=== PATIENT | female | born 1990 ===

== ENCOUNTER 2020-06-08 18:17 | Inpatient (IN) ==
[2020-06-08] MEDS ORDERED: VANCOMYCIN INJ 1,000 MG in SODIUM CHLORIDE 0.9% 250 ML IV ONE (22:36)
[2020-06-08 23:17] LABS: Basophils # 0.1 10*3/uL (0.0-0.2); Basophils % 0.5 % (0.0-0.8); Eosinophils # 0.3 10*3/uL (0.0-0.87); Eosinophils % 1.7 % (0.00-10.9); Hematocrit 32.6 VOL% (35.7-47.0); Immature Granulocytes % 0.5 %; Immature Granulocytes Absolute 0.08 #; Lymphocytes # 1.4 10*3/uL (1.4-4.0); Lymphocytes % 8.1 % (21.3-54.2); Mean Corpuscular HGB Conc 30.7 GM/DL (32-36); Mean Corpuscular Volume 83.6 FL (87-102); Mean Platelet Volume 9.1 FL (9.6-12.0); Monocytes % 6.3 % (1.7-12.7); Neutrophils % 82.9 % (38.7-73.9); Platelet Count 334 T/CUMM (130-400); Red Cell Distribution Width 16.6 % (9.3-17.3); White Blood Count 17.5 T/CUMM (4-12)
[2020-06-08] MEDS ORDERED: GLUCAGON 1 MG VIAL IM PRN (23:25)
[2020-06-08 23:37] LABS: Alanine Aminotransferase 13 U/L (13-56); Albumin 2.2 G/DL (3.4-5.0); Alkaline Phosphatase 239 U/L (45-117); Aspartate Amino Transferase 21 U/L (0-37); Bilirubin,Total < 0.39 MG/DL (0.2-1.0); Blood Urea Nitrogen 39 MG/DL (7-18); Calcium 7.4 MG/DL (8.5-10.1); Estimated Glom Filtration Rate 5 ML/MIN; Glucose 101 MG/DL (74-106); Osmolality,Calculated 270.7 MOS/KG (273-304); Total Protein 7.4 G/DL (6.4-8.3)
[2020-06-09] MEDS ORDERED: POTASSIUM CHLORIDE 20 MEQ TABLET PO ONE (00:28)
[2020-06-09] MEDS ORDERED: VANCOMYCIN INJ 750 MG in SODIUM CHLORIDE 0.9% 250 ML IV PRN (01:14)
[2020-06-09] MEDS ORDERED: VANCOMYCIN INJ 1,000 MG in SODIUM CHLORIDE 0.9% 250 ML IV ONE (01:30)
[2020-06-09 07:23] LABS: Basophils # 0.1 10*3/uL (0.0-0.2); Basophils % 0.5 % (0.0-0.8); Eosinophils # 0.3 10*3/uL (0.0-0.87); Eosinophils % 1.7 % (0.00-10.9); Hematocrit 32.2 VOL% (35.7-47.0); Immature Granulocytes % 0.6 %; Immature Granulocytes Absolute 0.11 #; Lymphocytes # 1.2 10*3/uL (1.4-4.0); Lymphocytes % 6.9 % (21.3-54.2); Mean Corpuscular HGB Conc 31.1 GM/DL (32-36); Mean Corpuscular Volume 83.2 FL (87-102); Monocytes % 6.2 % (1.7-12.7); Neutrophils % 84.1 % (38.7-73.9); Platelet Count 361 T/CUMM (130-400); Red Blood Count 3.87 MC/CUMM (3.8-5.5); Red Cell Distribution Width 16.7 % (9.3-17.3); White Blood Count 16.9 T/CUMM (4-12)
[2020-06-09 07:56] LABS: Albumin 2.2 G/DL (3.4-5.0); Bilirubin,Total 0.4 MG/DL (0.2-1.0); Calcium 7.3 MG/DL (8.5-10.1); Osmolality,Calculated 272.5 MOS/KG (273-304); Total Protein 7.4 G/DL (6.4-8.3)
[2020-06-09] MEDS ORDERED: ENOXAPARIN 30 MG/0.3 ML SYRINGE SUBCUT SCH (09:00)
[2020-06-09] MEDS: INSULIN REGULAR 100 UNIT/ML SUBCUT SCH ×4 (10:42→22:36)
[2020-06-09] MEDS ORDERED: VANCOMYCIN INJ 500 MG in SODIUM CHLORIDE 0.9% 100 ML IV PRN (15:34)
[2020-06-09] MEDS ORDERED: VANCOMYCIN INJ 500 MG in SODIUM CHLORIDE 0.9% 100 ML IV ONE (17:00)
[2020-06-09] MEDS: GABAPENTIN 100 MG CAPSULE PO SCH ×2 (18:06→22:35)
[2020-06-09] MEDS: oxyCODONE/ACETAMINOPHEN 5-325 MG TABLET PO PRN (22:35)
[2020-06-10 05:45] LABS: Basophils # 0.1 10*3/uL (0.0-0.2); Basophils % 0.6 % (0.0-0.8); Eosinophils # 0.2 10*3/uL (0.0-0.87); Eosinophils % 1.2 % (0.00-10.9); Hematocrit 31.5 VOL% (35.7-47.0); Hemoglobin 9.5 GM/DL (12.0-16.0); Immature Granulocytes % 0.7 %; Immature Granulocytes Absolute 0.12 #; Lymphocytes # 1.6 10*3/uL (1.4-4.0); Lymphocytes % 9.3 % (21.3-54.2); Mean Corpuscular HGB Conc 30.2 GM/DL (32-36); Mean Corpuscular Volume 84.2 FL (87-102); Mean Platelet Volume 8.9 FL (9.6-12.0); Monocytes % 8.7 % (1.7-12.7); Neutrophils % 79.5 % (38.7-73.9); Platelet Count 351 T/CUMM (130-400); Red Blood Count 3.74 MC/CUMM (3.8-5.5); Red Cell Distribution Width 16.4 % (9.3-17.3)
[2020-06-10 05:58] LABS: Calcium 7.7 MG/DL (8.5-10.1); Osmolality,Calculated 269.2 MOS/KG (273-304)
[2020-06-10] MEDS: LEVOTHYROXINE 25 MCG TABLET PO SCH (07:15)
[2020-06-10] MEDS: INSULIN REGULAR 100 UNIT/ML SUBCUT SCH ×4 (07:49→20:22)
[2020-06-10] MEDS: POTASSIUM CHLORIDE RIDER 10 MEQ in PREMIX 1 EACH IV PRN ×5 (08:03→15:57)
[2020-06-10] MEDS: HYDROmorphone 2 MG/1 ML VIAL IV PRN ×5 (08:03→13:25)
[2020-06-10] MEDS: GABAPENTIN 100 MG CAPSULE PO SCH ×3 (08:04→21:38)
[2020-06-10] MEDS: MULTIVITAMIN (CENTRUM) TABLET PO SCH (08:04)
[2020-06-10] MEDS ORDERED: LIDOCAINE 2% 5 ML VIAL ONE (11:31)
[2020-06-10] MEDS ORDERED: propofoL 200 MG/20 ML VIAL IV ONE (11:31)
[2020-06-10] MEDS ORDERED: SUCCINYLCHOLINE 200 MG/10 ML VIAL ONE (11:31)
[2020-06-10] MEDS ORDERED: fentaNYL 100 MCG/2 ML VIAL ONE (11:31)
[2020-06-10] MEDS ORDERED: ROCURONIUM 50 MG/5 ML VIAL IV ONE (11:31)
[2020-06-10] MEDS ORDERED: MIDAZOLAM 2 MG/2 ML VIAL ONE (11:32)
[2020-06-10] MEDS ORDERED: ONDANSETRON 4 MG/2 ML VIAL ONE (11:32)
[2020-06-10] MEDS ORDERED: BUPIVACAINE MPF 0.25% 30 ML VIAL ONE (11:38)
[2020-06-10] MEDS ORDERED: LOPERAMIDE 2 MG CAPSULE PO PRN (14:25)
[2020-06-10] MEDS ORDERED: LOPERAMIDE 2 MG CAPSULE PO ONE (14:30)
[2020-06-10] MEDS ORDERED: HEPARIN 5,000 UNIT/1 ML VIAL IV ONE (15:08)
[2020-06-10 16:53] LABS: INR 1.1; PT Patient Result 11.4 SECS (9.8-11.9)
[2020-06-10] MEDS: HEPARIN DRIP 25,000 UNITS/500 ML PREMIX IV SCH (16:56)
[2020-06-10] MEDS: WARFARIN 5 MG TABLET PO SCH (17:38)
[2020-06-10] MEDS: oxyCODONE/ACETAMINOPHEN 5-325 MG TABLET PO PRN ×2 (17:38→21:38)
[2020-06-11] MEDS: oxyCODONE/ACETAMINOPHEN 5-325 MG TABLET PO PRN ×4 (01:59→18:26)
[2020-06-11 06:19] LABS: Basophils # 0.1 10*3/uL (0.0-0.2); Basophils % 0.7 % (0.0-0.8); Eosinophils # 0.2 10*3/uL (0.0-0.87); Eosinophils % 1.5 % (0.00-10.9); Hematocrit 31.4 VOL% (35.7-47.0); Hemoglobin 9.5 GM/DL (12.0-16.0); Immature Granulocytes % 0.7 %; Immature Granulocytes Absolute 0.09 #; Lymphocytes # 1.3 10*3/uL (1.4-4.0); Lymphocytes % 10.6 % (21.3-54.2); Mean Corpuscular HGB Conc 30.3 GM/DL (32-36); Mean Corpuscular Volume 85.6 FL (87-102); Mean Platelet Volume 9.3 FL (9.6-12.0); Monocytes % 6.8 % (1.7-12.7); Neutrophils % 79.7 % (38.7-73.9); Platelet Count 342 T/CUMM (130-400); Red Blood Count 3.67 MC/CUMM (3.8-5.5); Red Cell Distribution Width 16.4 % (9.3-17.3); White Blood Count 12.4 T/CUMM (4-12)
[2020-06-11 06:39] LABS: Calcium 7.3 MG/DL (8.5-10.1); Osmolality,Calculated 266.7 MOS/KG (273-304)
[2020-06-11] MEDS: LEVOTHYROXINE 25 MCG TABLET PO SCH (06:40)
[2020-06-11] MEDS: VANCOMYCIN 50 MG/ML 60 ML/BOTTLE PO SCH ×3 (07:37→18:29)
[2020-06-11] MEDS: INSULIN REGULAR 100 UNIT/ML SUBCUT SCH ×4 (08:16→20:50)
[2020-06-11] MEDS: HYDROmorphone 2 MG/1 ML VIAL IV PRN ×3 (08:24→21:30)
[2020-06-11] MEDS: GABAPENTIN 100 MG CAPSULE PO SCH ×3 (08:29→21:25)
[2020-06-11] MEDS: MULTIVITAMIN (CENTRUM) TABLET PO SCH (08:29)
[2020-06-11] MEDS: SODIUM HYPOCHLORITE 0.25% IRRIG 473 ML BOTTLE TOP SCH (11:20)
[2020-06-11 16:40] LABS: Hematocrit 29.1 VOL% (35.7-47.0); Hemoglobin 8.9 GM/DL (12.0-16.0)
[2020-06-11] MEDS ORDERED: VANCOMYCIN INJ 500 MG in SODIUM CHLORIDE 0.9% 100 ML IV ONE (17:00)
[2020-06-11] MEDS: WARFARIN 5 MG TABLET PO SCH (17:17)
[2020-06-11] MEDS: HEPARIN DRIP 25,000 UNITS/500 ML PREMIX IV SCH (21:34)
[2020-06-12] MEDS: VANCOMYCIN 50 MG/ML 60 ML/BOTTLE PO SCH ×4 (00:18→17:34)
[2020-06-12] MEDS: HYDROmorphone 2 MG/1 ML VIAL IV PRN ×4 (03:16→17:39)
[2020-06-12] MEDS: LEVOTHYROXINE 25 MCG TABLET PO SCH (06:08)
[2020-06-12 06:22] LABS: Basophils # 0.1 10*3/uL (0.0-0.2); Basophils % 0.7 % (0.0-0.8); Eosinophils # 0.2 10*3/uL (0.0-0.87); Hematocrit 27.2 VOL% (35.7-47.0); Hemoglobin 8.2 GM/DL (12.0-16.0); Immature Granulocytes % 0.8 %; Immature Granulocytes Absolute 0.09 #; Lymphocytes # 1.4 10*3/uL (1.4-4.0); Lymphocytes % 12.7 % (21.3-54.2); Mean Corpuscular HGB Conc 30.1 GM/DL (32-36); Mean Corpuscular Volume 85.3 FL (87-102); Mean Platelet Volume 8.9 FL (9.6-12.0); Monocytes % 8.7 % (1.7-12.7); Neutrophils % 75.1 % (38.7-73.9); Platelet Count 340 T/CUMM (130-400); Red Blood Count 3.19 MC/CUMM (3.8-5.5); Red Cell Distribution Width 16.2 % (9.3-17.3); White Blood Count 11.2 T/CUMM (4-12)
[2020-06-12 06:29] LABS: PT Patient Result 11.1 SECS (9.8-11.9)
[2020-06-12 06:34] LABS: Calcium 7.8 MG/DL (8.5-10.1); Osmolality,Calculated 269.1 MOS/KG (273-304)
[2020-06-12] MEDS: INSULIN REGULAR 100 UNIT/ML SUBCUT SCH ×4 (07:56→20:58)
[2020-06-12] MEDS: oxyCODONE/ACETAMINOPHEN 5-325 MG TABLET PO PRN ×3 (09:34→20:58)
[2020-06-12] MEDS: SODIUM HYPOCHLORITE 0.25% IRRIG 473 ML BOTTLE TOP SCH (09:59)
[2020-06-12] MEDS: MULTIVITAMIN (CENTRUM) TABLET PO SCH (09:59)
[2020-06-12] MEDS: GABAPENTIN 100 MG CAPSULE PO SCH ×3 (10:00→20:58)
[2020-06-12] MEDS: WARFARIN 5 MG TABLET PO SCH (17:34)
[2020-06-13] MEDS: VANCOMYCIN 50 MG/ML 60 ML/BOTTLE PO SCH ×5 (00:24→23:41)
[2020-06-13] MEDS: HYDROmorphone 2 MG/1 ML VIAL IV PRN ×4 (00:28→23:35)
[2020-06-13] MEDS: oxyCODONE/ACETAMINOPHEN 5-325 MG TABLET PO PRN ×2 (02:39→19:49)
[2020-06-13 05:03] LABS: Basophils # 0.1 10*3/uL (0.0-0.2); Basophils % 0.7 % (0.0-0.8); Eosinophils # 0.2 10*3/uL (0.0-0.87); Eosinophils % 2.6 % (0.00-10.9); Hematocrit 28.3 VOL% (35.7-47.0); Hemoglobin 8.4 GM/DL (12.0-16.0); Immature Granulocytes % 0.8 %; Immature Granulocytes Absolute 0.07 #; Lymphocytes # 1.9 10*3/uL (1.4-4.0); Lymphocytes % 20.8 % (21.3-54.2); Mean Corpuscular HGB Conc 29.7 GM/DL (32-36); Mean Corpuscular Volume 85.2 FL (87-102); Mean Platelet Volume 8.7 FL (9.6-12.0); Monocytes % 7.6 % (1.7-12.7); Neutrophils % 67.5 % (38.7-73.9); Platelet Count 369 T/CUMM (130-400); Red Blood Count 3.32 MC/CUMM (3.8-5.5); Red Cell Distribution Width 16.2 % (9.3-17.3)
[2020-06-13] MEDS: LEVOTHYROXINE 25 MCG TABLET PO SCH ×2 (05:22→05:33)
[2020-06-13 05:40] LABS: INR 1.7
[2020-06-13] MEDS ORDERED: WARFARIN 4 MG TABLET PO SCH (12:00)
[2020-06-13] MEDS: MULTIVITAMIN (CENTRUM) TABLET PO SCH (13:54)
[2020-06-13] MEDS: GABAPENTIN 100 MG CAPSULE PO SCH ×3 (13:54→21:56)
[2020-06-13] MEDS: INSULIN REGULAR 100 UNIT/ML SUBCUT SCH ×3 (13:54→21:56)
[2020-06-13] MEDS ORDERED: VANCOMYCIN INJ 500 MG in SODIUM CHLORIDE 0.9% 100 ML IV ONE (17:00)
[2020-06-13] MEDS: HEPARIN DRIP 25,000 UNITS/500 ML PREMIX IV SCH (17:31)
[2020-06-13] MEDS: SODIUM HYPOCHLORITE 0.25% IRRIG 473 ML BOTTLE TOP SCH (17:38)
[2020-06-14] MEDS: HYDROmorphone 2 MG/1 ML VIAL IV PRN ×4 (04:05→23:55)
[2020-06-14] MEDS: LEVOTHYROXINE 25 MCG TABLET PO SCH (05:35)
[2020-06-14] MEDS: VANCOMYCIN 50 MG/ML 60 ML/BOTTLE PO SCH ×4 (05:35→23:56)
[2020-06-14 06:20] LABS: Basophils # 0.1 10*3/uL (0.0-0.2); Basophils % 0.8 % (0.0-0.8); Eosinophils # 0.2 10*3/uL (0.0-0.87); Eosinophils % 2.5 % (0.00-10.9); Hematocrit 26.2 VOL% (35.7-47.0); Hemoglobin 7.9 GM/DL (12.0-16.0); INR 2.8; Immature Granulocytes % 0.8 %; Immature Granulocytes Absolute 0.06 #; Lymphocytes # 1.9 10*3/uL (1.4-4.0); Lymphocytes % 23.2 % (21.3-54.2); Mean Corpuscular HGB Conc 30.2 GM/DL (32-36); Mean Corpuscular Volume 85.1 FL (87-102); Monocytes % 9.7 % (1.7-12.7); PT Patient Result 28.7 SECS (9.8-11.9); Platelet Count 350 T/CUMM (130-400); Red Blood Count 3.08 MC/CUMM (3.8-5.5); Red Cell Distribution Width 16.1 % (9.3-17.3)
[2020-06-14 06:36] LABS: Calcium 7.6 MG/DL (8.5-10.1); Osmolality,Calculated 269.1 MOS/KG (273-304)
[2020-06-14] MEDS: MULTIVITAMIN (CENTRUM) TABLET PO SCH (09:59)
[2020-06-14] MEDS: GABAPENTIN 100 MG CAPSULE PO SCH ×3 (09:59→20:37)
[2020-06-14] MEDS: SODIUM HYPOCHLORITE 0.25% IRRIG 473 ML BOTTLE TOP SCH ×2 (10:00→17:31)
[2020-06-14] MEDS: INSULIN REGULAR 100 UNIT/ML SUBCUT SCH ×2 (12:34→12:35)
[2020-06-14] MEDS: oxyCODONE/ACETAMINOPHEN 5-325 MG TABLET PO PRN (13:26)
[2020-06-14] MEDS: DEXTROSE 50% 25 GM/50 ML VIAL IV PRN (14:12)
[2020-06-15] MEDS: oxyCODONE/ACETAMINOPHEN 5-325 MG TABLET PO PRN ×3 (04:06→18:20)
[2020-06-15] MEDS: HYDROmorphone 2 MG/1 ML VIAL IV PRN ×4 (06:07→23:07)
[2020-06-15] MEDS: LEVOTHYROXINE 25 MCG TABLET PO SCH (06:08)
[2020-06-15] MEDS: VANCOMYCIN 50 MG/ML 60 ML/BOTTLE PO SCH ×3 (06:08→18:20)
[2020-06-15 06:12] LABS: INR 1.7
[2020-06-15] MEDS: MULTIVITAMIN (CENTRUM) TABLET PO SCH (09:26)
[2020-06-15] MEDS: GABAPENTIN 100 MG CAPSULE PO SCH ×3 (09:26→20:01)
[2020-06-15] MEDS: HEPARIN DRIP 25,000 UNITS/500 ML PREMIX IV SCH (14:53)
[2020-06-15] MEDS: SODIUM HYPOCHLORITE 0.25% IRRIG 473 ML BOTTLE TOP SCH (15:30)
[2020-06-16] MEDS: VANCOMYCIN 50 MG/ML 60 ML/BOTTLE PO SCH ×4 (00:57→18:33)
[2020-06-16] MEDS: oxyCODONE/ACETAMINOPHEN 5-325 MG TABLET PO PRN ×4 (01:11→20:38)
[2020-06-16] MEDS: HYDROmorphone 2 MG/1 ML VIAL IV PRN ×2 (03:51→08:58)
[2020-06-16 05:44] LABS: INR 1.2
[2020-06-16 05:51] LABS: Calcium 7.7 MG/DL (8.5-10.1); Osmolality,Calculated 267.8 MOS/KG (273-304)
[2020-06-16] MEDS: LEVOTHYROXINE 25 MCG TABLET PO SCH (05:51)
[2020-06-16] MEDS: MULTIVITAMIN (CENTRUM) TABLET PO SCH (08:58)
[2020-06-16] MEDS: GABAPENTIN 100 MG CAPSULE PO SCH ×3 (08:59→20:37)
[2020-06-16] MEDS ORDERED: HEPARIN 10,000 UNIT/10 ML VIAL IV SCH (12:00)
[2020-06-16] MEDS: MORPHINE 4 MG/1 ML VIAL IV PRN ×3 (14:02→23:22)
[2020-06-16] MEDS: HEPARIN DRIP 25,000 UNITS/500 ML PREMIX IV SCH (15:44)
[2020-06-16] MEDS ORDERED: VANCOMYCIN INJ 500 MG in SODIUM CHLORIDE 0.9% 100 ML IV ONE (17:00)
[2020-06-16] MEDS: SODIUM HYPOCHLORITE 0.25% IRRIG 473 ML BOTTLE TOP SCH (19:10)
[2020-06-16] MEDS: WARFARIN 4 MG TABLET PO SCH (19:27)
[2020-06-16] MEDS ORDERED: HEPARIN 5,000 UNIT/1 ML VIAL IV PRN (22:51)
[2020-06-17] MEDS: VANCOMYCIN 50 MG/ML 60 ML/BOTTLE PO SCH ×5 (00:26→23:40)
[2020-06-17] MEDS: MORPHINE 4 MG/1 ML VIAL IV PRN ×2 (05:52→09:26)
[2020-06-17] MEDS: LEVOTHYROXINE 25 MCG TABLET PO SCH (05:52)
[2020-06-17 06:11] LABS: Basophils % 0.5 % (0.0-0.8); Eosinophils # 0.2 10*3/uL (0.0-0.87); Eosinophils % 2.1 % (0.00-10.9); Hematocrit 25.6 VOL% (35.7-47.0); Hemoglobin 7.6 GM/DL (12.0-16.0); Immature Granulocytes % 0.6 %; Immature Granulocytes Absolute 0.05 #; Lymphocytes # 1.9 10*3/uL (1.4-4.0); Mean Corpuscular HGB Conc 29.7 GM/DL (32-36); Mean Corpuscular Volume 85.6 FL (87-102); Mean Platelet Volume 8.8 FL (9.6-12.0); Monocytes % 6.9 % (1.7-12.7); Neutrophils % 65.9 % (38.7-73.9); Platelet Count 311 T/CUMM (130-400); Red Blood Count 2.99 MC/CUMM (3.8-5.5); Red Cell Distribution Width 16.3 % (9.3-17.3); White Blood Count 7.7 T/CUMM (4-12)
[2020-06-17 06:19] LABS: INR 1.2; PT Patient Result 12.6 SECS (9.8-11.9)
[2020-06-17 06:44] LABS: Calcium 7.4 MG/DL (8.5-10.1); Osmolality,Calculated 271.5 MOS/KG (273-304)
[2020-06-17] MEDS: MULTIVITAMIN (CENTRUM) TABLET PO SCH (09:26)
[2020-06-17] MEDS: GABAPENTIN 100 MG CAPSULE PO SCH ×3 (09:26→20:25)
[2020-06-17] MEDS ORDERED: DEXTROSE 50% 25 GM/50 ML VIAL IV PRN (11:06)
[2020-06-17] MEDS ORDERED: GLUCAGON 1 MG VIAL IM PRN (11:06)
[2020-06-17] MEDS: oxyCODONE/ACETAMINOPHEN 5-325 MG TABLET PO PRN ×3 (11:12→20:26)
[2020-06-17] MEDS: INSULIN LISPRO 100 UNIT/ML SUBCUT SCH ×3 (12:16→20:26)
[2020-06-17] MEDS: HEPARIN DRIP 25,000 UNITS/500 ML PREMIX IV SCH (15:26)
[2020-06-17] MEDS: WARFARIN 4 MG TABLET PO SCH (17:24)
[2020-06-17] MEDS: SODIUM HYPOCHLORITE 0.25% IRRIG 473 ML BOTTLE TOP SCH (17:34)
[2020-06-18] MEDS: oxyCODONE/ACETAMINOPHEN 5-325 MG TABLET PO PRN ×4 (00:37→21:23)
[2020-06-18 05:33] LABS: Basophils # 0.1 10*3/uL (0.0-0.2); Basophils % 0.6 % (0.0-0.8); Eosinophils # 0.2 10*3/uL (0.0-0.87); Eosinophils % 2.3 % (0.00-10.9); Hematocrit 23.8 VOL% (35.7-47.0); Hemoglobin 7.2 GM/DL (12.0-16.0); Immature Granulocytes % 0.5 %; Immature Granulocytes Absolute 0.04 #; Lymphocytes # 1.8 10*3/uL (1.4-4.0); Mean Corpuscular HGB Conc 30.3 GM/DL (32-36); Mean Corpuscular Volume 85.9 FL (87-102); Mean Platelet Volume 9.3 FL (9.6-12.0); Monocytes % 7.9 % (1.7-12.7); Neutrophils % 65.7 % (38.7-73.9); Platelet Count 299 T/CUMM (130-400); Red Blood Count 2.77 MC/CUMM (3.8-5.5); Red Cell Distribution Width 16.8 % (9.3-17.3); White Blood Count 7.7 T/CUMM (4-12)
[2020-06-18] MEDS: LEVOTHYROXINE 25 MCG TABLET PO SCH (05:37)
[2020-06-18] MEDS: VANCOMYCIN 50 MG/ML 60 ML/BOTTLE PO SCH ×4 (05:38→23:55)
[2020-06-18 05:43] LABS: INR 1.5; PT Patient Result 15.4 SECS (9.8-11.9)
[2020-06-18 06:07] LABS: Calcium 7.4 MG/DL (8.5-10.1); Osmolality,Calculated 277.4 MOS/KG (273-304)
[2020-06-18] MEDS ORDERED: VANCOMYCIN INJ 500 MG in SODIUM CHLORIDE 0.9% 100 ML IV PRN (07:08)
[2020-06-18] MEDS: INSULIN LISPRO 100 UNIT/ML SUBCUT SCH ×4 (07:35→21:24)
[2020-06-18] MEDS: SODIUM HYPOCHLORITE 0.25% IRRIG 473 ML BOTTLE TOP SCH (08:53)
[2020-06-18] MEDS: GABAPENTIN 100 MG CAPSULE PO SCH ×3 (08:53→21:06)
[2020-06-18] MEDS: MULTIVITAMIN (CENTRUM) TABLET PO SCH (08:53)
[2020-06-18] MEDS: MORPHINE 4 MG/1 ML VIAL IV PRN ×2 (09:25→17:20)
[2020-06-18] MEDS ORDERED: SODIUM CHLORIDE 0.9% 1,000 ML IV PRN (13:59)
[2020-06-18 14:52] LABS: Basophils % 0.4 % (0.0-0.8); Eosinophils # 0.1 10*3/uL (0.0-0.87); Eosinophils % 1.9 % (0.00-10.9); Hematocrit 22.7 VOL% (35.7-47.0); Hemoglobin 7.1 GM/DL (12.0-16.0); Immature Granulocytes % 0.6 %; Immature Granulocytes Absolute 0.04 #; Lymphocytes # 1.5 10*3/uL (1.4-4.0); Lymphocytes % 21.9 % (21.3-54.2); Mean Corpuscular HGB Conc 31.3 GM/DL (32-36); Mean Corpuscular Volume 82.8 FL (87-102); Mean Platelet Volume 8.5 FL (9.6-12.0); Neutrophils % 70.2 % (38.7-73.9); Platelet Count 260 T/CUMM (130-400); Red Blood Count 2.74 MC/CUMM (3.8-5.5); Red Cell Distribution Width 16.6 % (9.3-17.3); White Blood Count 6.8 T/CUMM (4-12)
[2020-06-18 15:45] LABS: Folate 9.7 NG/ML (5.4-24.0); Vitamin B12 333 PG/ML (211-911)
[2020-06-18 15:55] LABS: Sedimentation Rate-Westergren 82 MM/HR (0-20)
[2020-06-18] MEDS: HEPARIN DRIP 25,000 UNITS/500 ML PREMIX IV SCH (16:06)
[2020-06-18] MEDS ORDERED: VANCOMYCIN INJ 500 MG in SODIUM CHLORIDE 0.9% 100 ML IV ONE (17:00)
[2020-06-18] MEDS: WARFARIN 4 MG TABLET PO SCH (23:15)
[2020-06-19] MEDS: oxyCODONE/ACETAMINOPHEN 5-325 MG TABLET PO PRN ×3 (01:38→12:23)
[2020-06-19] MEDS: MORPHINE 4 MG/1 ML VIAL IV PRN ×3 (04:00→21:08)
[2020-06-19] MEDS ORDERED: VANCOMYCIN INJ 500 MG in SODIUM CHLORIDE 0.9% 100 ML IV ONE (05:00)
[2020-06-19 05:49] LABS: Basophils # 0.1 10*3/uL (0.0-0.2); Basophils % 0.7 % (0.0-0.8); Eosinophils # 0.2 10*3/uL (0.0-0.87); Eosinophils % 1.6 % (0.00-10.9); Hematocrit 31.4 VOL% (35.7-47.0); Hemoglobin 9.6 GM/DL (12.0-16.0); Immature Granulocytes % 0.7 %; Immature Granulocytes Absolute 0.07 #; Lymphocytes # 2.1 10*3/uL (1.4-4.0); Lymphocytes % 19.7 % (21.3-54.2); Mean Corpuscular HGB Conc 30.6 GM/DL (32-36); Mean Corpuscular Volume 85.3 FL (87-102); Mean Platelet Volume 9.4 FL (9.6-12.0); Monocytes % 7.2 % (1.7-12.7); Neutrophils % 70.1 % (38.7-73.9); Platelet Count 307 T/CUMM (130-400); Red Blood Count 3.68 MC/CUMM (3.8-5.5); Red Cell Distribution Width 16.5 % (9.3-17.3); White Blood Count 10.6 T/CUMM (4-12)
[2020-06-19 06:19] LABS: Calcium 7.6 MG/DL (8.5-10.1); Osmolality,Calculated 277.2 MOS/KG (273-304)
[2020-06-19 06:23] LABS: INR 1.4; PT Patient Result 14.6 SECS (9.8-11.9)
[2020-06-19] MEDS: LEVOTHYROXINE 25 MCG TABLET PO SCH (06:52)
[2020-06-19] MEDS: VANCOMYCIN 50 MG/ML 60 ML/BOTTLE PO SCH ×4 (06:52→23:28)
[2020-06-19 07:24] LABS: Hemoglobin A1 (Alkaline) 97.9 % (96.5-98.5); Hemoglobin A2 (Alkaline) 2.1 % (1.5-3.5)
[2020-06-19] MEDS: GABAPENTIN 100 MG CAPSULE PO SCH ×3 (08:43→21:08)
[2020-06-19] MEDS: MULTIVITAMIN (CENTRUM) TABLET PO SCH (08:43)
[2020-06-19] MEDS: INSULIN LISPRO 100 UNIT/ML SUBCUT SCH ×4 (08:43→21:07)
[2020-06-19] MEDS ORDERED: WARFARIN 1 MG TABLET PO ONE (10:30)
[2020-06-19] MEDS: SODIUM HYPOCHLORITE 0.25% IRRIG 473 ML BOTTLE TOP SCH (10:47)
[2020-06-19] MEDS: HEPARIN DRIP 25,000 UNITS/500 ML PREMIX IV SCH (17:38)
[2020-06-19] MEDS: WARFARIN 4 MG TABLET PO SCH (17:39)
[2020-06-20] MEDS: oxyCODONE/ACETAMINOPHEN 5-325 MG TABLET PO PRN (00:03)
[2020-06-20] MEDS: MORPHINE 4 MG/1 ML VIAL IV PRN ×5 (01:30→21:31)
[2020-06-20 05:48] LABS: Basophils # 0.1 10*3/uL (0.0-0.2); Basophils % 0.8 % (0.0-0.8); Eosinophils # 0.2 10*3/uL (0.0-0.87); Eosinophils % 2.4 % (0.00-10.9); Hematocrit 29.9 VOL% (35.7-47.0); Hemoglobin 9.1 GM/DL (12.0-16.0); Immature Granulocytes % 0.5 %; Immature Granulocytes Absolute 0.04 #; Lymphocytes # 1.7 10*3/uL (1.4-4.0); Lymphocytes % 21.7 % (21.3-54.2); Mean Corpuscular HGB Conc 30.4 GM/DL (32-36); Mean Corpuscular Volume 85.9 FL (87-102); Mean Platelet Volume 9.1 FL (9.6-12.0); Neutrophils % 67.6 % (38.7-73.9); Platelet Count 283 T/CUMM (130-400); Red Blood Count 3.48 MC/CUMM (3.8-5.5); Red Cell Distribution Width 16.4 % (9.3-17.3); White Blood Count 7.9 T/CUMM (4-12)
[2020-06-20 06:07] LABS: INR 1.3; PT Patient Result 13.5 SECS (9.8-11.9)
[2020-06-20] MEDS: LEVOTHYROXINE 25 MCG TABLET PO SCH (06:26)
[2020-06-20] MEDS: VANCOMYCIN 50 MG/ML 60 ML/BOTTLE PO SCH ×4 (06:27→23:13)
[2020-06-20 06:50] LABS: Calcium 7.7 MG/DL (8.5-10.1); Osmolality,Calculated 273.9 MOS/KG (273-304)
[2020-06-20] MEDS: INSULIN LISPRO 100 UNIT/ML SUBCUT SCH ×4 (09:45→21:31)
[2020-06-20] MEDS: GABAPENTIN 100 MG CAPSULE PO SCH ×3 (09:46→21:30)
[2020-06-20] MEDS: MULTIVITAMIN (CENTRUM) TABLET PO SCH (09:46)
[2020-06-20] MEDS: SODIUM HYPOCHLORITE 0.25% IRRIG 473 ML BOTTLE TOP SCH (16:30)
[2020-06-20] MEDS: HEPARIN DRIP 25,000 UNITS/500 ML PREMIX IV SCH (16:45)
[2020-06-20] MEDS: WARFARIN 5 MG TABLET PO SCH (18:12)
[2020-06-21] MEDS: MORPHINE 4 MG/1 ML VIAL IV PRN ×5 (01:32→22:24)
[2020-06-21] MEDS: oxyCODONE/ACETAMINOPHEN 5-325 MG TABLET PO PRN ×4 (03:52→21:10)
[2020-06-21] MEDS: VANCOMYCIN 50 MG/ML 60 ML/BOTTLE PO SCH ×2 (05:19→12:00)
[2020-06-21] MEDS: LEVOTHYROXINE 25 MCG TABLET PO SCH (05:32)
[2020-06-21 06:55] LABS: Basophils # 0.1 10*3/uL (0.0-0.2); Basophils % 0.6 % (0.0-0.8); Eosinophils # 0.1 10*3/uL (0.0-0.87); Eosinophils % 1.6 % (0.00-10.9); Hematocrit 27.2 VOL% (35.7-47.0); Hemoglobin 8.5 GM/DL (12.0-16.0); Immature Granulocytes % 0.7 %; Immature Granulocytes Absolute 0.06 #; Lymphocytes # 1.2 10*3/uL (1.4-4.0); Lymphocytes % 13.5 % (21.3-54.2); Mean Corpuscular HGB Conc 31.3 GM/DL (32-36); Mean Corpuscular Volume 82.9 FL (87-102); Mean Platelet Volume 8.9 FL (9.6-12.0); Monocytes % 7.5 % (1.7-12.7); Neutrophils % 76.1 % (38.7-73.9); Platelet Count 259 T/CUMM (130-400); Red Blood Count 3.28 MC/CUMM (3.8-5.5); Red Cell Distribution Width 16.4 % (9.3-17.3); White Blood Count 8.7 T/CUMM (4-12)
[2020-06-21 07:05] LABS: INR 1.7; PT Patient Result 17.7 SECS (9.8-11.9)
[2020-06-21 07:18] LABS: Calcium 7.4 MG/DL (8.5-10.1); Osmolality,Calculated 271.5 MOS/KG (273-304)
[2020-06-21] MEDS: INSULIN LISPRO 100 UNIT/ML SUBCUT SCH ×4 (08:33→21:11)
[2020-06-21] MEDS: GABAPENTIN 100 MG CAPSULE PO SCH ×3 (09:00→21:10)
[2020-06-21] MEDS: MULTIVITAMIN (CENTRUM) TABLET PO SCH (16:58)
[2020-06-21] MEDS: HEPARIN DRIP 25,000 UNITS/500 ML PREMIX IV SCH (17:01)
[2020-06-21] MEDS: WARFARIN 5 MG TABLET PO SCH (18:09)
[2020-06-21] MEDS: SODIUM HYPOCHLORITE 0.25% IRRIG 473 ML BOTTLE TOP SCH (18:14)
[2020-06-22] MEDS: oxyCODONE/ACETAMINOPHEN 5-325 MG TABLET PO PRN ×2 (01:27→09:32)
[2020-06-22] MEDS: MORPHINE 4 MG/1 ML VIAL IV PRN ×3 (05:08→20:37)
[2020-06-22] MEDS: LEVOTHYROXINE 25 MCG TABLET PO SCH (05:10)
[2020-06-22 05:48] LABS: Basophils # 0.1 10*3/uL (0.0-0.2); Basophils % 0.5 % (0.0-0.8); Eosinophils # 0.2 10*3/uL (0.0-0.87); Eosinophils % 1.9 % (0.00-10.9); Hematocrit 23.5 VOL% (35.7-47.0); Hemoglobin 7.4 GM/DL (12.0-16.0); Immature Granulocytes % 0.6 %; Immature Granulocytes Absolute 0.06 #; Lymphocytes # 1.3 10*3/uL (1.4-4.0); Lymphocytes % 12.6 % (21.3-54.2); Mean Corpuscular HGB Conc 31.5 GM/DL (32-36); Mean Corpuscular Volume 84.5 FL (87-102); Mean Platelet Volume 10.1 FL (9.6-12.0); Monocytes % 9.8 % (1.7-12.7); Neutrophils % 74.6 % (38.7-73.9); Platelet Count 208 T/CUMM (130-400); Red Blood Count 2.78 MC/CUMM (3.8-5.5); Red Cell Distribution Width 16.7 % (9.3-17.3); White Blood Count 10.5 T/CUMM (4-12)
[2020-06-22 06:10] LABS: Calcium 7.9 MG/DL (8.5-10.1); Osmolality,Calculated 275.5 MOS/KG (273-304)
[2020-06-22 08:00] LABS: INR 2.4; PT Patient Result 24.2 SECS (9.8-11.9)
[2020-06-22] MEDS ORDERED: SODIUM POLYSTYRENE SULFATE 15 GM/60 ML BOTTLE PO ONE (08:16)
[2020-06-22] MEDS: INSULIN LISPRO 100 UNIT/ML SUBCUT SCH ×4 (08:32→20:37)
[2020-06-22] MEDS: MULTIVITAMIN (CENTRUM) TABLET PO SCH (09:32)
[2020-06-22] MEDS: GABAPENTIN 100 MG CAPSULE PO SCH ×3 (09:32→20:36)
[2020-06-22] MEDS: SODIUM HYPOCHLORITE 0.25% IRRIG 473 ML BOTTLE TOP SCH (11:25)
[2020-06-22] MEDS: HEPARIN DRIP 25,000 UNITS/500 ML PREMIX IV SCH (15:16)
[2020-06-22] MEDS: WARFARIN 5 MG TABLET PO SCH (18:12)
[2020-06-23] MEDS: MORPHINE 4 MG/1 ML VIAL IV PRN ×3 (01:21→18:57)
[2020-06-23] MEDS: LEVOTHYROXINE 25 MCG TABLET PO SCH (06:00)
[2020-06-23] MEDS: oxyCODONE/ACETAMINOPHEN 5-325 MG TABLET PO PRN ×3 (06:00→20:59)
[2020-06-23 06:38] LABS: Basophils # 0.1 10*3/uL (0.0-0.2); Basophils % 0.4 % (0.0-0.8); Eosinophils # 0.2 10*3/uL (0.0-0.87); Eosinophils % 1.7 % (0.00-10.9); Hematocrit 23.8 VOL% (35.7-47.0); Hemoglobin 7.4 GM/DL (12.0-16.0); Immature Granulocytes % 0.4 %; Immature Granulocytes Absolute 0.05 #; Lymphocytes # 1.3 10*3/uL (1.4-4.0); Lymphocytes % 11.1 % (21.3-54.2); Mean Corpuscular HGB Conc 31.1 GM/DL (32-36); Mean Corpuscular Volume 85.3 FL (87-102); Monocytes % 7.7 % (1.7-12.7); Neutrophils % 78.7 % (38.7-73.9); Platelet Count 241 T/CUMM (130-400); Red Blood Count 2.79 MC/CUMM (3.8-5.5); Red Cell Distribution Width 17.2 % (9.3-17.3); White Blood Count 11.7 T/CUMM (4-12)
[2020-06-23 06:52] LABS: INR 3.2; PT Patient Result 32.2 SECS (9.8-11.9)
[2020-06-23 06:55] LABS: Calcium 7.9 MG/DL (8.5-10.1); Osmolality,Calculated 288.8 MOS/KG (273-304)
[2020-06-23] MEDS: INSULIN LISPRO 100 UNIT/ML SUBCUT SCH ×4 (08:28→21:33)
[2020-06-23] MEDS: MULTIVITAMIN (CENTRUM) TABLET PO SCH (08:28)
[2020-06-23] MEDS: GABAPENTIN 100 MG CAPSULE PO SCH ×3 (08:28→20:39)
[2020-06-23] MEDS ORDERED: cloNIDine 0.1 MG TABLET PO PRN ×2 (11:28→11:29)
[2020-06-23] MEDS: SODIUM HYPOCHLORITE 0.25% IRRIG 473 ML BOTTLE TOP SCH (13:11)
[2020-06-23] MEDS ORDERED: WARFARIN 5 MG TABLET PO SCH (18:00)
[2020-06-23] MEDS: PANTOPRAZOLE 40 MG TABLET PO SCH (18:21)
[2020-06-23] MEDS: COLESTIPOL 1 GM TABLET PO SCH (20:39)
[2020-06-24] MEDS: MORPHINE 4 MG/1 ML VIAL IV PRN ×4 (00:18→19:43)
[2020-06-24] MEDS: DEXTROSE 50% 25 GM/50 ML VIAL IV PRN (00:24)
[2020-06-24 05:39] LABS: Basophils # 0.1 10*3/uL (0.0-0.2); Basophils % 0.5 % (0.0-0.8); Eosinophils # 0.2 10*3/uL (0.0-0.87); Eosinophils % 1.7 % (0.00-10.9); Hematocrit 23.9 VOL% (35.7-47.0); Hemoglobin 7.3 GM/DL (12.0-16.0); Immature Granulocytes % 0.5 %; Immature Granulocytes Absolute 0.06 #; Lymphocytes # 1.1 10*3/uL (1.4-4.0); Lymphocytes % 9.6 % (21.3-54.2); Mean Corpuscular HGB Conc 30.5 GM/DL (32-36); Mean Platelet Volume 9.5 FL (9.6-12.0); Monocytes % 6.7 % (1.7-12.7); Platelet Count 268 T/CUMM (130-400); Red Blood Count 2.78 MC/CUMM (3.8-5.5); Red Cell Distribution Width 17.3 % (9.3-17.3); White Blood Count 11.2 T/CUMM (4-12)
[2020-06-24 05:47] LABS: INR 3.1; PT Patient Result 31.4 SECS (9.8-11.9)
[2020-06-24 05:58] LABS: Calcium 8.2 MG/DL (8.5-10.1); Osmolality,Calculated 286.5 MOS/KG (273-304)
[2020-06-24] MEDS: PANTOPRAZOLE 40 MG TABLET PO SCH ×2 (06:35→18:05)
[2020-06-24] MEDS: LEVOTHYROXINE 25 MCG TABLET PO SCH (06:35)
[2020-06-24] MEDS: INSULIN LISPRO 100 UNIT/ML SUBCUT SCH ×4 (07:26→20:29)
[2020-06-24] MEDS: GABAPENTIN 100 MG CAPSULE PO SCH ×3 (08:33→20:23)
[2020-06-24] MEDS: COLESTIPOL 1 GM TABLET PO SCH ×2 (08:33→20:22)
[2020-06-24] MEDS: MULTIVITAMIN (CENTRUM) TABLET PO SCH (08:33)
[2020-06-24] MEDS: oxyCODONE/ACETAMINOPHEN 5-325 MG TABLET PO PRN ×3 (09:57→23:23)
[2020-06-24] MEDS: SODIUM HYPOCHLORITE 0.25% IRRIG 473 ML BOTTLE TOP SCH (09:57)
[2020-06-24] MEDS ORDERED: SODIUM CHLORIDE 0.9% 1,000 ML IV PRN (11:13)
[2020-06-24] MEDS: METOPROLOL TARTRATE 25 MG TABLET PO SCH ×2 (12:52→20:23)
[2020-06-24] MEDS: amLODIPine 5 MG TABLET PO SCH (12:52)
[2020-06-24] MEDS ORDERED: MORPHINE 4 MG/1 ML VIAL IV ONE (14:45)
[2020-06-24] MEDS ORDERED: WARFARIN 5 MG TABLET PO SCH (18:00)
[2020-06-25] MEDS: MORPHINE 4 MG/1 ML VIAL IV PRN ×4 (03:23→20:40)
[2020-06-25 05:39] LABS: INR 4.4; PT Patient Result 43.8 SECS (9.8-11.9)
[2020-06-25 05:56] LABS: Basophils # 0.1 10*3/uL (0.0-0.2); Basophils % 0.5 % (0.0-0.8); Eosinophils # 0.3 10*3/uL (0.0-0.87); Eosinophils % 3.4 % (0.00-10.9); Hematocrit 22.8 VOL% (35.7-47.0); Immature Granulocytes % 0.5 %; Immature Granulocytes Absolute 0.05 #; Lymphocytes # 1.4 10*3/uL (1.4-4.0); Lymphocytes % 14.6 % (21.3-54.2); Mean Corpuscular HGB Conc 30.7 GM/DL (32-36); Monocytes % 8.1 % (1.7-12.7); Neutrophils % 72.9 % (38.7-73.9); Platelet Count 278 T/CUMM (130-400); Red Blood Count 2.65 MC/CUMM (3.8-5.5); Red Cell Distribution Width 17.6 % (9.3-17.3); White Blood Count 9.4 T/CUMM (4-12)
[2020-06-25] MEDS: LEVOTHYROXINE 25 MCG TABLET PO SCH (05:57)
[2020-06-25] MEDS: PANTOPRAZOLE 40 MG TABLET PO SCH ×2 (06:00→19:40)
[2020-06-25 06:32] LABS: Calcium 7.8 MG/DL (8.5-10.1); Osmolality,Calculated 281.1 MOS/KG (273-304)
[2020-06-25] MEDS ORDERED: PHYTONADIONE 5 MG/5 ML ORAL.SYR PO ONE ×2 (06:37→09:00)
[2020-06-25] MEDS: INSULIN LISPRO 100 UNIT/ML SUBCUT SCH ×4 (08:03→20:46)
[2020-06-25] MEDS: GABAPENTIN 100 MG CAPSULE PO SCH ×3 (08:27→20:41)
[2020-06-25] MEDS: MULTIVITAMIN (CENTRUM) TABLET PO SCH (08:27)
[2020-06-25] MEDS: amLODIPine 5 MG TABLET PO SCH (08:27)
[2020-06-25] MEDS: COLESTIPOL 1 GM TABLET PO SCH ×2 (08:27→20:41)
[2020-06-25] MEDS: METOPROLOL TARTRATE 25 MG TABLET PO SCH ×2 (08:27→20:41)
[2020-06-25] MEDS: SODIUM HYPOCHLORITE 0.25% IRRIG 473 ML BOTTLE TOP SCH (15:05)
[2020-06-26] MEDS: MORPHINE 4 MG/1 ML VIAL IV PRN ×4 (00:36→16:04)
[2020-06-26] MEDS: oxyCODONE/ACETAMINOPHEN 5-325 MG TABLET PO PRN ×2 (04:09→08:10)
[2020-06-26] MEDS: LEVOTHYROXINE 25 MCG TABLET PO SCH (05:30)
[2020-06-26] MEDS: PANTOPRAZOLE 40 MG TABLET PO SCH (06:08)
[2020-06-26 06:21] LABS: Basophils # 0.1 10*3/uL (0.0-0.2); Basophils % 0.5 % (0.0-0.8); Eosinophils # 0.2 10*3/uL (0.0-0.87); Eosinophils % 2.5 % (0.00-10.9); Hematocrit 24.6 VOL% (35.7-47.0); Hemoglobin 7.5 GM/DL (12.0-16.0); Immature Granulocytes % 0.3 %; Immature Granulocytes Absolute 0.03 #; Lymphocytes # 1.2 10*3/uL (1.4-4.0); Lymphocytes % 12.4 % (21.3-54.2); Mean Corpuscular HGB Conc 30.5 GM/DL (32-36); Mean Corpuscular Volume 85.4 FL (87-102); Mean Platelet Volume 9.3 FL (9.6-12.0); Monocytes % 7.2 % (1.7-12.7); Neutrophils % 77.1 % (38.7-73.9); Platelet Count 285 T/CUMM (130-400); Red Blood Count 2.88 MC/CUMM (3.8-5.5); Red Cell Distribution Width 17.7 % (9.3-17.3); White Blood Count 9.7 T/CUMM (4-12)
[2020-06-26 06:29] LABS: PT Patient Result 21.1 SECS (9.8-11.9)
[2020-06-26 06:33] LABS: Calcium 7.8 MG/DL (8.5-10.1); Osmolality,Calculated 280.8 MOS/KG (273-304)
[2020-06-26] MEDS ORDERED: SODIUM CHLORIDE 0.9% 1,000 ML IV PRN (07:55)
[2020-06-26] MEDS: INSULIN LISPRO 100 UNIT/ML SUBCUT SCH ×2 (08:05→13:19)
[2020-06-26] MEDS ORDERED: amLODIPine 10 MG TABLET PO SCH (09:00)
[2020-06-26] MEDS ORDERED: METOPROLOL TARTRATE 50 MG TABLET PO SCH (09:00)
[2020-06-26] MEDS: COLESTIPOL 1 GM TABLET PO SCH (10:56)
[2020-06-26] MEDS: MULTIVITAMIN (CENTRUM) TABLET PO SCH (10:56)
[2020-06-26] MEDS: GABAPENTIN 100 MG CAPSULE PO SCH ×2 (10:56→14:45)
[2020-06-26] MEDS: SODIUM HYPOCHLORITE 0.25% IRRIG 473 ML BOTTLE TOP SCH (10:57)
[2020-06-26 16:43] VITALS: BP 160/97
[2020-06-26 17:26] LABS: Hematocrit 30.1 VOL% (35.7-47.0); Hemoglobin 9.3 GM/DL (12.0-16.0)
[2020-06-26] MEDS ORDERED: WARFARIN 5 MG TABLET PO SCH (18:00)
[2020-06-27] MEDS ORDERED: WARFARIN 5 MG TABLET PO SCH (18:00)
== END 2020-06-26 19:45 | disposition home health service (06) | DRG 371 ==
LOC: INTOOBSV 20:34 → N.EDINP 20:34 → SUATTDRO 20:34 → N.3E 21:41 → SUATTDRO 06-11 08:02 → N.3E 06-20 12:09
PROVIDERS: ADMIT Internal Medicine; ATTEND Internal Medicine

== ENCOUNTER 2020-07-13 11:24 | Inpatient (IN) ==
[2020-07-13 12:03] LABS: Basophils # 0.1 10*3/uL (0.0-0.2); Basophils % 0.7 % (0.0-0.8); Eosinophils # 0.2 10*3/uL (0.0-0.87); Eosinophils % 1.8 % (0.00-10.9); Hematocrit 31.9 VOL% (35.7-47.0); Hemoglobin 9.7 GM/DL (12.0-16.0); Immature Granulocytes % 1.1 %; Immature Granulocytes Absolute 0.11 #; Lymphocytes # 1.3 10*3/uL (1.4-4.0); Lymphocytes % 12.4 % (21.3-54.2); Mean Corpuscular HGB Conc 30.4 GM/DL (32-36); Mean Corpuscular Volume 89.6 FL (87-102); Mean Platelet Volume 9.8 FL (9.6-12.0); Monocytes % 8.4 % (1.7-12.7); NRBC # 0.02 10*3/uL; Neutrophils % 75.6 % (38.7-73.9); Platelet Count 391 T/CUMM (130-400); Red Blood Count 3.56 MC/CUMM (3.8-5.5); White Blood Count 10.4 T/CUMM (4-12)
[2020-07-13 12:10] LABS: INR 2.1; PT Patient Result 21.9 SECS (9.8-11.9)
[2020-07-13 12:18] LABS: Calcium 7.2 MG/DL (8.5-10.1); Osmolality,Calculated 288.7 MOS/KG (273-304)
[2020-07-13] MEDS ORDERED: HYDROmorphone 2 MG/1 ML VIAL IV STA (13:52)
[2020-07-13] MEDS ORDERED: ONDANSETRON 4 MG/2 ML VIAL IV STA (13:52)
[2020-07-13] MEDS ORDERED: hydrALAZINE 20 MG/1 ML VIAL IV PRN (14:02)
[2020-07-13] MEDS ORDERED: ONDANSETRON 4 MG/2 ML VIAL IV PRN (14:02)
[2020-07-13] MEDS ORDERED: GLUCAGON 1 MG VIAL IM PRN (14:02)
[2020-07-13] MEDS ORDERED: DOCUSATE SODIUM 100 MG CAPSULE PO PRN (14:02)
[2020-07-13] MEDS ORDERED: ACETAMINOPHEN 325 MG TABLET PO PRN (14:02)
[2020-07-13] MEDS ORDERED: DEXTROSE 50% 25 GM/50 ML VIAL IV PRN (14:02)
[2020-07-13 16:23] LABS: Hematocrit 32.4 VOL% (35.7-47.0); Hemoglobin 9.9 GM/DL (12.0-16.0)
[2020-07-13] MEDS: PANTOPRAZOLE 40 MG TABLET PO SCH (20:35)
[2020-07-13 23:08] LABS: Hematocrit 36.8 VOL% (35.7-47.0); Hemoglobin 11.1 GM/DL (12.0-16.0)
[2020-07-14 06:10] LABS: Basophils # 0.1 10*3/uL (0.0-0.2); Basophils % 0.8 % (0.0-0.8); Eosinophils # 0.2 10*3/uL (0.0-0.87); Eosinophils % 1.6 % (0.00-10.9); Hematocrit 34.3 VOL% (35.7-47.0); Hemoglobin 10.7 GM/DL (12.0-16.0); Immature Granulocytes % 1.1 %; Immature Granulocytes Absolute 0.13 #; Lymphocytes # 1.4 10*3/uL (1.4-4.0); Lymphocytes % 11.6 % (21.3-54.2); Mean Corpuscular HGB Conc 31.2 GM/DL (32-36); Mean Corpuscular Volume 87.3 FL (87-102); Mean Platelet Volume 9.2 FL (9.6-12.0); Monocytes % 8.4 % (1.7-12.7); Neutrophils % 76.5 % (38.7-73.9); Platelet Count 383 T/CUMM (130-400); Red Blood Count 3.93 MC/CUMM (3.8-5.5); Red Cell Distribution Width 19.4 % (9.3-17.3); White Blood Count 11.8 T/CUMM (4-12)
[2020-07-14 06:16] LABS: INR 2.1; PT Patient Result 21.9 SECS (9.8-11.9)
[2020-07-14 06:35] LABS: Calcium 7.4 MG/DL (8.5-10.1)
[2020-07-14 06:53] LABS: Hematocrit 33.6 VOL% (35.7-47.0); Hemoglobin 10.1 GM/DL (12.0-16.0)
[2020-07-14] MEDS: PANTOPRAZOLE 40 MG TABLET PO SCH ×2 (09:47→21:02)
[2020-07-14] MEDS ORDERED: HYDROmorphone 2 MG/1 ML VIAL IV ONE ×2 (13:04→20:12)
[2020-07-14 14:44] LABS: Hemoglobin 10.2 GM/DL (12.0-16.0)
[2020-07-14] MEDS: INSULIN LISPRO 100 UNIT/ML SUBCUT SCH ×2 (18:08→21:03)
[2020-07-14] MEDS: GABAPENTIN 100 MG CAPSULE PO SCH ×2 (18:08→21:02)
[2020-07-14] MEDS: METOPROLOL TARTRATE 50 MG TABLET PO SCH (21:02)
[2020-07-14] MEDS: COLESTIPOL 1 GM TABLET PO SCH (21:11)
[2020-07-15 04:39] LABS: Basophils # 0.1 10*3/uL (0.0-0.2); Basophils % 0.6 % (0.0-0.8); Eosinophils # 0.1 10*3/uL (0.0-0.87); Eosinophils % 0.7 % (0.00-10.9); Hemoglobin 9.8 GM/DL (12.0-16.0); Immature Granulocytes % 0.8 %; Immature Granulocytes Absolute 0.09 #; Lymphocytes # 0.9 10*3/uL (1.4-4.0); Lymphocytes % 7.9 % (21.3-54.2); Mean Corpuscular HGB Conc 30.6 GM/DL (32-36); Mean Corpuscular Volume 88.9 FL (87-102); Mean Platelet Volume 9.2 FL (9.6-12.0); Monocytes % 8.6 % (1.7-12.7); Neutrophils % 81.4 % (38.7-73.9); Platelet Count 310 T/CUMM (130-400); Red Cell Distribution Width 19.5 % (9.3-17.3)
[2020-07-15 05:02] LABS: Calcium 7.8 MG/DL (8.5-10.1); Osmolality,Calculated 280.7 MOS/KG (273-304)
[2020-07-15 05:23] LABS: INR 1.6; PT Patient Result 17.2 SECS (9.8-11.9)
[2020-07-15] MEDS: COLESTIPOL 1 GM TABLET PO SCH ×2 (09:19→21:09)
[2020-07-15] MEDS: LEVOTHYROXINE 25 MCG TABLET PO SCH (09:20)
[2020-07-15] MEDS: amLODIPine 10 MG TABLET PO SCH (09:20)
[2020-07-15] MEDS: METOPROLOL TARTRATE 50 MG TABLET PO SCH ×2 (09:20→21:09)
[2020-07-15] MEDS: GABAPENTIN 100 MG CAPSULE PO SCH ×3 (09:20→21:09)
[2020-07-15] MEDS: PANTOPRAZOLE 40 MG TABLET PO SCH ×2 (09:20→21:09)
[2020-07-15] MEDS: INSULIN LISPRO 100 UNIT/ML SUBCUT SCH ×4 (09:21→21:12)
[2020-07-15] MEDS: SODIUM HYPOCHLORITE 0.25% IRRIG 473 ML BOTTLE TOP SCH (09:21)
[2020-07-15] MEDS ORDERED: HYDROmorphone 2 MG/1 ML VIAL IV ONE (11:00)
[2020-07-16] MEDS: INSULIN LISPRO 100 UNIT/ML SUBCUT SCH ×2 (07:28→12:14)
[2020-07-16 07:40] VITALS: BP 141/83
[2020-07-16] MEDS: amLODIPine 10 MG TABLET PO SCH (08:11)
[2020-07-16] MEDS: COLESTIPOL 1 GM TABLET PO SCH (08:11)
[2020-07-16] MEDS: PANTOPRAZOLE 40 MG TABLET PO SCH (08:11)
[2020-07-16] MEDS: SODIUM HYPOCHLORITE 0.25% IRRIG 473 ML BOTTLE TOP SCH (08:11)
[2020-07-16] MEDS: GABAPENTIN 100 MG CAPSULE PO SCH (08:11)
[2020-07-16] MEDS: LEVOTHYROXINE 25 MCG TABLET PO SCH (08:11)
[2020-07-16] MEDS: METOPROLOL TARTRATE 50 MG TABLET PO SCH (08:11)
== END 2020-07-16 14:00 | disposition home health service (06) | DRG 553 ==
LOC: EDBD → EDUNIT# → N.EDINP 11:24 → N.ED 11:24 → SUATTDRO 14:02 → N.EDINP 15:49 → N.5E 15:57
PROVIDERS: ADMIT Internal Medicine; ATTEND Internal Medicine

== ENCOUNTER 2020-12-17 11:34 | Inpatient (IN) ==
[2020-12-17] MEDS ORDERED: ALBUTEROL 2.5 MG/3 ML NEB RESP TX PRN (15:05)
[2020-12-17] MEDS ORDERED: GLUCAGON 1 MG VIAL IM PRN (15:05)
[2020-12-17] MEDS: ONDANSETRON 4 MG/2 ML VIAL IV PRN (15:12)
[2020-12-17] MEDS ORDERED: VANCOMYCIN INJ 1,000 MG in SODIUM CHLORIDE 0.9% 250 ML IV ONE (15:27)
[2020-12-17] MEDS ORDERED: MEROPENEM 500 MG in SODIUM CHLORIDE 0.9% 100 ML IV SCH (15:30)
[2020-12-17] MEDS: PANTOPRAZOLE 40 MG VIAL IV SCH (16:10)
[2020-12-17] MEDS: LEVOTHYROXINE 25 MCG TABLET PO SCH (16:10)
[2020-12-17] MEDS: ENOXAPARIN 30 MG/0.3 ML SYRINGE SUBCUT SCH (16:10)
[2020-12-17] MEDS: INSULIN GLARGINE 100 UNIT/ML SUBCUT SCH (16:10)
[2020-12-17] MEDS ORDERED: MEROPENEM 500 MG in SODIUM CHLORIDE 0.9% 100 ML IV PRN ×2 (17:35→18:00)
[2020-12-17] MEDS: POTASSIUM CHLORIDE INJ 10 MEQ in LACTATED RINGERS 1,000 ML IV SCH (17:42)
[2020-12-17 17:47] LABS: Calcium 6.5 MG/DL (8.5-10.1); Potassium 2.6 MMOL/L (3.5-5.1)
[2020-12-17] MEDS: POTASSIUM CHLORIDE RIDER 10 MEQ/100 ML PREMIX IV SCH ×3 (17:50→22:54)
[2020-12-17] MEDS: INSULIN LISPRO 100 UNIT/ML SUBCUT SCH ×2 (17:50→21:40)
[2020-12-17] MEDS: MORPHINE 4 MG/1 ML VIAL IV PRN ×2 (17:55→23:04)
[2020-12-17] MEDS: GABAPENTIN 100 MG CAPSULE PO SCH (21:30)
[2020-12-17] MEDS: DEXTROSE 50% 25 GM/50 ML VIAL IV PRN (21:32)
[2020-12-17] MEDS: COLESTIPOL 1 GM TABLET PO SCH (22:32)
[2020-12-17] MEDS ORDERED: LORazepam 2 MG/1 ML VIAL IV ONE (23:51)
[2020-12-18] MEDS: DEXTROSE 50% 25 GM/50 ML VIAL IV PRN ×8 (00:18→19:24)
[2020-12-18] MEDS: POTASSIUM CHLORIDE RIDER 10 MEQ/100 ML PREMIX IV SCH (00:55)
[2020-12-18] MEDS: POTASSIUM CHLORIDE INJ 10 MEQ in LACTATED RINGERS 1,000 ML IV SCH ×4 (02:00→22:00)
[2020-12-18] MEDS: INSULIN LISPRO 100 UNIT/ML SUBCUT SCH ×6 (02:37→22:07)
[2020-12-18] MEDS ORDERED: DEXTROSE 10% 500 ML IV SCH ×2 (03:00)
[2020-12-18] MEDS: MORPHINE 4 MG/1 ML VIAL IV PRN ×4 (03:15→21:34)
[2020-12-18 04:29] LABS: Basophils % 0.2 % (0.0-0.8); Eosinophils # 0.1 10*3/uL (0.0-0.87); Eosinophils % 0.3 % (0.00-10.9); Hemoglobin 8.9 GM/DL (12.0-16.0); Immature Granulocytes % 1.2 %; Immature Granulocytes Absolute 0.31 #; Lymphocytes # 0.8 10*3/uL (1.4-4.0); Mean Corpuscular HGB Conc 29.7 GM/DL (32-36); Mean Corpuscular Volume 92.3 FL (87-102); Mean Platelet Volume 9.6 FL (9.6-12.0); Monocytes % 4.4 % (1.7-12.7); Neutrophils % 90.9 % (38.7-73.9); Platelet Count 324 T/CUMM (130-400); Red Blood Count 3.25 MC/CUMM (3.8-5.5); Red Cell Distribution Width 17.4 % (9.3-17.3); White Blood Count 25.5 T/CUMM (4-12)
[2020-12-18] MEDS: DEXTROSE 10% 500 ML IV SCH ×3 (04:35→20:30)
[2020-12-18 04:39] LABS: INR 1.1; PT Patient Result 12.4 SECS (10.5-12.0)
[2020-12-18 04:49] LABS: Hypochromasia 1+; Lymphocytes 2 % (20-55); Microcytosis 1+; Platelet Estimate Adequate; Segmented Neutrophils 91 % (50-85); Total Cells Counted 100
[2020-12-18 05:31] LABS: Albumin 2.1 G/DL (3.4-5.0); Bilirubin,Total 0.8 MG/DL (0.2-1.0); Calcium 7.2 MG/DL (8.5-10.1); Osmolality,Calculated 266.2 MOS/KG (273-304); Potassium 3.3 MMOL/L (3.5-5.1); Thyroid Stimulating Hormone 2.57 uIU/ml (0.358-3.74); Total Protein 7.2 G/DL (6.4-8.2)
[2020-12-18] MEDS: GABAPENTIN 100 MG CAPSULE PO SCH ×3 (08:20→20:29)
[2020-12-18] MEDS: COLESTIPOL 1 GM TABLET PO SCH ×2 (08:20→21:36)
[2020-12-18] MEDS: INSULIN GLARGINE 100 UNIT/ML SUBCUT SCH (08:20)
[2020-12-18] MEDS: LEVOTHYROXINE 25 MCG TABLET PO SCH (08:21)
[2020-12-18] MEDS ORDERED: LIDOCAINE 1% 20 ML VIAL ONE (08:27)
[2020-12-18] MEDS ORDERED: KETAMINE 500 MG/10 ML VIAL ONE (08:33)
[2020-12-18] MEDS ORDERED: MIDAZOLAM 2 MG/2 ML VIAL ONE (08:33)
[2020-12-18] MEDS: metroNIDAZOLE INJ 500 MG/100 ML PREMIX IV SCH ×3 (08:39→20:28)
[2020-12-18] MEDS ORDERED: cloNIDine 0.3 MG/24 HR PATCH TRANSDERM SCH (09:00)
[2020-12-18] MEDS ORDERED: VANCOMYCIN INJ 1,000 MG in SODIUM CHLORIDE 0.9% 250 ML IV ONE (09:00)
[2020-12-18] MEDS ORDERED: fentaNYL 100 MCG/2 ML VIAL ONE (09:33)
[2020-12-18] MEDS ORDERED: ETOMIDATE 40 MG/20 ML VIAL IV ONE (09:48)
[2020-12-18] MEDS: HYDROmorphone 2 MG/1 ML VIAL IV PRN ×2 (10:15→13:50)
[2020-12-18] MEDS ORDERED: HYDROmorphone 2 MG/1 ML VIAL ONE (10:15)
[2020-12-18] MEDS ORDERED: ONDANSETRON 4 MG/2 ML VIAL IV PRN (10:25)
[2020-12-18] MEDS: VANCOMYCIN 50 MG/ML 60 ML/BOTTLE PO SCH ×3 (10:57→18:07)
[2020-12-18] MEDS: ONDANSETRON 4 MG/2 ML VIAL IV PRN (12:30)
[2020-12-18] MEDS ORDERED: PROMETHAZINE 25 MG/1 ML VIAL IM PRN (14:23)
[2020-12-18] MEDS: ENALAPRIL 2.5 MG/2 ML VIAL IV PRN (14:24)
[2020-12-18] MEDS: PANTOPRAZOLE 40 MG VIAL IV SCH (14:36)
[2020-12-18] MEDS: ENOXAPARIN 30 MG/0.3 ML SYRINGE SUBCUT SCH (14:36)
[2020-12-18] MEDS ORDERED: MEROPENEM 500 MG in SODIUM CHLORIDE 0.9% 100 ML IV SCH (16:00)
[2020-12-18] MEDS ORDERED: HYDROCORTISONE 100 MG VIAL IV SCH (21:00)
[2020-12-19] MEDS: VANCOMYCIN 50 MG/ML 60 ML/BOTTLE PO SCH ×4 (00:27→17:20)
[2020-12-19] MEDS: ENALAPRIL 2.5 MG/2 ML VIAL IV PRN (01:10)
[2020-12-19] MEDS: DEXTROSE 10% 500 ML IV SCH ×2 (01:20→09:57)
[2020-12-19] MEDS: INSULIN LISPRO 100 UNIT/ML SUBCUT SCH ×6 (02:17→20:36)
[2020-12-19] MEDS: metroNIDAZOLE INJ 500 MG/100 ML PREMIX IV SCH ×4 (02:31→20:34)
[2020-12-19] MEDS: MORPHINE 4 MG/1 ML VIAL IV PRN ×2 (03:25→07:47)
[2020-12-19 04:04] LABS: Basophils # 0.1 10*3/uL (0.0-0.2); Basophils % 0.2 % (0.0-0.8); Hematocrit 28.4 VOL% (35.7-47.0); Hemoglobin 8.6 GM/DL (12.0-16.0); Immature Granulocytes % 1.3 %; Immature Granulocytes Absolute 0.37 #; Lymphocytes # 0.4 10*3/uL (1.4-4.0); Lymphocytes % 1.3 % (21.3-54.2); Mean Corpuscular HGB Conc 30.3 GM/DL (32-36); Mean Corpuscular Volume 90.4 FL (87-102); Monocytes % 1.4 % (1.7-12.7); Neutrophils % 95.8 % (38.7-73.9); Platelet Count 294 T/CUMM (130-400); Red Blood Count 3.14 MC/CUMM (3.8-5.5); Red Cell Distribution Width 17.2 % (9.3-17.3); White Blood Count 27.7 T/CUMM (4-12)
[2020-12-19 04:31] LABS: Albumin 1.9 G/DL (3.4-5.0); Bilirubin,Total 1.2 MG/DL (0.2-1.0); Calcium 6.5 MG/DL (8.5-10.1); Osmolality,Calculated 264.2 MOS/KG (273-304); Potassium 3.7 MMOL/L (3.5-5.1); Total Protein 6.6 G/DL (6.4-8.2)
[2020-12-19 04:51] LABS: Band Neutrophils 2 % (0-10); Lymphocytes 1 % (20-55); Segmented Neutrophils 97 % (50-85); Total Cells Counted 100
[2020-12-19 04:52] LABS: Hypochromasia 2+
[2020-12-19 04:53] LABS: Platelet Estimate Normal
[2020-12-19] MEDS: POTASSIUM CHLORIDE INJ 10 MEQ in LACTATED RINGERS 1,000 ML IV SCH (05:01)
[2020-12-19] MEDS: HYDROCORTISONE 100 MG VIAL IV SCH ×2 (09:45→20:34)
[2020-12-19] MEDS: HYDROmorphone 2 MG/1 ML VIAL IV PRN ×3 (09:51→20:47)
[2020-12-19] MEDS: GABAPENTIN 100 MG CAPSULE PO SCH ×3 (09:55→20:35)
[2020-12-19] MEDS: LEVOTHYROXINE 25 MCG TABLET PO SCH (09:56)
[2020-12-19] MEDS: COLESTIPOL 1 GM TABLET PO SCH ×2 (09:56→20:36)
[2020-12-19] MEDS: ENOXAPARIN 30 MG/0.3 ML SYRINGE SUBCUT SCH (17:20)
[2020-12-19] MEDS: PANTOPRAZOLE 40 MG VIAL IV SCH (17:51)
[2020-12-20] MEDS: VANCOMYCIN 50 MG/ML 60 ML/BOTTLE PO SCH ×4 (00:56→17:43)
[2020-12-20] MEDS: INSULIN LISPRO 100 UNIT/ML SUBCUT SCH ×6 (00:57→20:59)
[2020-12-20] MEDS: metroNIDAZOLE INJ 500 MG/100 ML PREMIX IV SCH ×4 (03:55→21:04)
[2020-12-20] MEDS: HYDROmorphone 2 MG/1 ML VIAL IV PRN ×3 (04:15→18:39)
[2020-12-20 06:09] LABS: Basophils % 0.1 % (0.0-0.8); Hematocrit 29.4 VOL% (35.7-47.0); Hemoglobin 8.7 GM/DL (12.0-16.0); Immature Granulocytes Absolute 0.55 #; Lymphocytes # 0.6 10*3/uL (1.4-4.0); Lymphocytes % 2.2 % (21.3-54.2); Mean Corpuscular HGB Conc 29.6 GM/DL (32-36); Mean Platelet Volume 10.1 FL (9.6-12.0); Neutrophils % 93.7 % (38.7-73.9); Platelet Count 380 T/CUMM (130-400); Red Blood Count 3.16 MC/CUMM (3.8-5.5); Red Cell Distribution Width 17.2 % (9.3-17.3); White Blood Count 26.9 T/CUMM (4-12)
[2020-12-20 06:25] LABS: Albumin 2.1 G/DL (3.4-5.0); Bilirubin,Total 0.7 MG/DL (0.2-1.0); Calcium 7.6 MG/DL (8.5-10.1); Osmolality,Calculated 273.1 MOS/KG (273-304); Potassium 3.7 MMOL/L (3.5-5.1); Total Protein 6.9 G/DL (6.4-8.2)
[2020-12-20 06:33] LABS: Hypochromasia 1+; Lymphocytes 3 % (20-55); Microcytosis 1+; Platelet Estimate Adequate; Segmented Neutrophils 93 % (50-85); Total Cells Counted 100
[2020-12-20] MEDS: HYDROCORTISONE 100 MG VIAL IV SCH ×2 (08:25→21:01)
[2020-12-20] MEDS: ONDANSETRON 4 MG/2 ML VIAL IV PRN (08:26)
[2020-12-20] MEDS: GABAPENTIN 100 MG CAPSULE PO SCH ×3 (08:26→21:04)
[2020-12-20] MEDS: LEVOTHYROXINE 25 MCG TABLET PO SCH (08:27)
[2020-12-20] MEDS: COLESTIPOL 1 GM TABLET PO SCH ×2 (08:27→21:03)
[2020-12-20] MEDS ORDERED: DEXTROSE 50% 25 GM/50 ML VIAL IV PRN (10:33)
[2020-12-20] MEDS ORDERED: GLUCAGON 1 MG VIAL IM PRN (10:33)
[2020-12-20] MEDS ORDERED: hydrALAZINE 20 MG/1 ML VIAL IV PRN (10:53)
[2020-12-20] MEDS: CLORAZEPATE 3.75 MG TABLET PO PRN (10:56)
[2020-12-20] MEDS ORDERED: amLODIPine 10 MG TABLET PO SCH (14:30)
[2020-12-20] MEDS: METOPROLOL TARTRATE 50 MG TABLET PO SCH ×2 (14:54→21:04)
[2020-12-20] MEDS: PANTOPRAZOLE 40 MG VIAL IV SCH (14:55)
[2020-12-20] MEDS: ENOXAPARIN 30 MG/0.3 ML SYRINGE SUBCUT SCH (14:55)
[2020-12-21] MEDS: VANCOMYCIN 50 MG/ML 60 ML/BOTTLE PO SCH ×4 (00:36→19:03)
[2020-12-21] MEDS: INSULIN LISPRO 100 UNIT/ML SUBCUT SCH ×6 (00:43→21:19)
[2020-12-21] MEDS: HYDROmorphone 2 MG/1 ML VIAL IV PRN ×2 (01:52→09:26)
[2020-12-21] MEDS: ONDANSETRON 4 MG/2 ML VIAL IV PRN (03:40)
[2020-12-21] MEDS: metroNIDAZOLE INJ 500 MG/100 ML PREMIX IV SCH ×4 (03:42→21:16)
[2020-12-21 06:00] LABS: Basophils % 0.2 % (0.0-0.8); Hematocrit 26.6 VOL% (35.7-47.0); Hemoglobin 7.9 GM/DL (12.0-16.0); Immature Granulocytes % 1.6 %; Immature Granulocytes Absolute 0.37 #; Lymphocytes # 0.5 10*3/uL (1.4-4.0); Mean Corpuscular HGB Conc 29.7 GM/DL (32-36); Mean Platelet Volume 9.8 FL (9.6-12.0); Monocytes % 2.4 % (1.7-12.7); Neutrophils % 93.8 % (38.7-73.9); Platelet Count 371 T/CUMM (130-400); Red Blood Count 2.83 MC/CUMM (3.8-5.5); Red Cell Distribution Width 17.5 % (9.3-17.3); White Blood Count 23.7 T/CUMM (4-12)
[2020-12-21] MEDS ORDERED: diphenhydrAMINE 50 MG/1 ML VIAL IV PRN (06:07)
[2020-12-21] MEDS ORDERED: ONDANSETRON 4 MG/2 ML VIAL IV PRN (06:07)
[2020-12-21] MEDS ORDERED: HYDROmorphone 2 MG/1 ML VIAL IV PRN (06:07)
[2020-12-21] MEDS ORDERED: PROMETHAZINE INJ 25 MG in SODIUM CHLORIDE 0.9% 50 ML IV PRN (06:07)
[2020-12-21] MEDS ORDERED: MEPERIDINE 25 MG/1 ML VIAL IV PRN (06:07)
[2020-12-21 06:24] LABS: Lymphocytes 5 % (20-55); Platelet Estimate Adequate; Segmented Neutrophils 93 % (50-85); Total Cells Counted 100
[2020-12-21 06:25] LABS: Albumin 2.1 G/DL (3.4-5.0); Bilirubin,Total 0.7 MG/DL (0.2-1.0); Calcium 6.9 MG/DL (8.5-10.1); Hypochromasia 1+; Microcytosis 1+; Osmolality,Calculated 283.7 MOS/KG (273-304); Potassium 3.8 MMOL/L (3.5-5.1); Total Protein 6.7 G/DL (6.4-8.2)
[2020-12-21] MEDS ORDERED: fentaNYL 100 MCG/2 ML VIAL ONE (06:33)
[2020-12-21] MEDS ORDERED: ONDANSETRON 4 MG/2 ML VIAL ONE (06:33)
[2020-12-21] MEDS ORDERED: LIDOCAINE 2% 5 ML VIAL ONE (06:33)
[2020-12-21] MEDS ORDERED: propofoL 200 MG/20 ML VIAL IV ONE (06:33)
[2020-12-21] MEDS ORDERED: MIDAZOLAM 2 MG/2 ML VIAL ONE (06:33)
[2020-12-21] MEDS ORDERED: LIDOCAINE 1% 20 ML VIAL ONE (06:38)
[2020-12-21] MEDS ORDERED: ETOMIDATE 40 MG/20 ML VIAL IV ONE (06:59)
[2020-12-21] MEDS ORDERED: SODIUM CHLORIDE 0.9% 250 ML IV ONE (07:01)
[2020-12-21] MEDS ORDERED: PHENYLEPHRINE 1 MG/10 ML SYRINGE IV ONE (07:46)
[2020-12-21] MEDS ORDERED: DEXAMETHASONE 4 MG/1 ML VIAL ONE (07:50)
[2020-12-21] MEDS ORDERED: SEVOFLURANE 1 UNIT/15 MINUTE INH ONE (07:55)
[2020-12-21] MEDS: HYDROCORTISONE 100 MG VIAL IV SCH ×2 (09:25→21:08)
[2020-12-21] MEDS: COLESTIPOL 1 GM TABLET PO SCH ×2 (09:26→21:20)
[2020-12-21] MEDS: LEVOTHYROXINE 25 MCG TABLET PO SCH (09:27)
[2020-12-21] MEDS: CLORAZEPATE 3.75 MG TABLET PO PRN (09:27)
[2020-12-21] MEDS: GABAPENTIN 100 MG CAPSULE PO SCH ×3 (09:27→21:20)
[2020-12-21] MEDS: METOPROLOL TARTRATE 50 MG TABLET PO SCH ×2 (09:27→21:20)
[2020-12-21] MEDS: amLODIPine 10 MG TABLET PO SCH (09:27)
[2020-12-21] MEDS ORDERED: GLUCAGON 1 MG VIAL IM PRN (09:35)
[2020-12-21] MEDS ORDERED: DEXTROSE 50% 25 GM/50 ML VIAL IV PRN (09:35)
[2020-12-21] MEDS: CIPROFLOXACIN INJ 200 MG/100 ML PREMIX IV SCH ×2 (10:02→22:18)
[2020-12-21] MEDS: HYDROmorphone 2 MG/1 ML VIAL IM PRN ×3 (12:48→21:12)
[2020-12-21] MEDS: ENOXAPARIN 30 MG/0.3 ML SYRINGE SUBCUT SCH (15:52)
[2020-12-21] MEDS: PANTOPRAZOLE 40 MG VIAL IV SCH (15:52)
[2020-12-22] MEDS: INSULIN LISPRO 100 UNIT/ML SUBCUT SCH ×6 (01:08→21:43)
[2020-12-22] MEDS: VANCOMYCIN 50 MG/ML 60 ML/BOTTLE PO SCH ×4 (01:09→18:24)
[2020-12-22] MEDS: metroNIDAZOLE INJ 500 MG/100 ML PREMIX IV SCH ×4 (02:56→21:39)
[2020-12-22 05:17] LABS: Basophils % 0.2 % (0.0-0.8); Eosinophils # 0.1 10*3/uL (0.0-0.87); Eosinophils % 0.4 % (0.00-10.9); Hematocrit 22.7 VOL% (35.7-47.0); Hemoglobin 6.8 GM/DL (12.0-16.0); Immature Granulocytes % 3.5 %; Immature Granulocytes Absolute 0.56 #; Lymphocytes # 1.6 10*3/uL (1.4-4.0); Lymphocytes % 9.8 % (21.3-54.2); Mean Corpuscular Volume 91.5 FL (87-102); Mean Platelet Volume 9.9 FL (9.6-12.0); Monocytes % 4.7 % (1.7-12.7); Neutrophils % 81.4 % (38.7-73.9); Platelet Count 371 T/CUMM (130-400); Red Blood Count 2.48 MC/CUMM (3.8-5.5); Red Cell Distribution Width 17.2 % (9.3-17.3); White Blood Count 16.1 T/CUMM (4-12)
[2020-12-22 05:41] LABS: Calcium 6.6 MG/DL (8.5-10.1); Osmolality,Calculated 269.4 MOS/KG (273-304); Potassium 3.2 MMOL/L (3.5-5.1)
[2020-12-22 06:00] LABS: Band Neutrophils 1 % (0-10); Hypochromasia 1+; Lymphocytes 9 % (20-55); Microcytosis 1+; Segmented Neutrophils 86 % (50-85); Total Cells Counted 100
[2020-12-22 06:01] LABS: Ovalocytes Slight; Platelet Estimate Normal
[2020-12-22] MEDS: HYDROmorphone 2 MG/1 ML VIAL IV PRN ×3 (08:07→18:22)
[2020-12-22] MEDS: GABAPENTIN 100 MG CAPSULE PO SCH ×3 (09:13→21:43)
[2020-12-22] MEDS: LEVOTHYROXINE 25 MCG TABLET PO SCH (09:13)
[2020-12-22] MEDS: COLESTIPOL 1 GM TABLET PO SCH ×2 (09:13→21:40)
[2020-12-22] MEDS: amLODIPine 10 MG TABLET PO SCH (09:13)
[2020-12-22] MEDS: METOPROLOL TARTRATE 50 MG TABLET PO SCH ×2 (09:14→21:41)
[2020-12-22] MEDS: HYDROCORTISONE 100 MG VIAL IV SCH ×2 (09:15→21:41)
[2020-12-22] MEDS: CIPROFLOXACIN INJ 200 MG/100 ML PREMIX IV SCH (18:17)
[2020-12-22] MEDS: CLORAZEPATE 3.75 MG TABLET PO PRN (21:41)
[2020-12-22] MEDS: ENOXAPARIN 30 MG/0.3 ML SYRINGE SUBCUT SCH (21:43)
[2020-12-23] MEDS: VANCOMYCIN 50 MG/ML 60 ML/BOTTLE PO SCH ×5 (00:30→23:59)
[2020-12-23] MEDS: INSULIN LISPRO 100 UNIT/ML SUBCUT SCH ×6 (00:30→20:50)
[2020-12-23] MEDS: HYDROmorphone 2 MG/1 ML VIAL IV PRN ×3 (00:33→12:11)
[2020-12-23] MEDS: metroNIDAZOLE INJ 500 MG/100 ML PREMIX IV SCH ×4 (04:31→20:55)
[2020-12-23 05:10] LABS: Basophils % 0.1 % (0.0-0.8); Eosinophils % 0.2 % (0.00-10.9); Hematocrit 21.9 VOL% (35.7-47.0); Hemoglobin 6.6 GM/DL (12.0-16.0); Immature Granulocytes % 3.2 %; Immature Granulocytes Absolute 0.44 #; Lymphocytes # 0.5 10*3/uL (1.4-4.0); Lymphocytes % 3.8 % (21.3-54.2); Mean Corpuscular HGB Conc 30.1 GM/DL (32-36); Mean Corpuscular Volume 92.4 FL (87-102); Mean Platelet Volume 9.9 FL (9.6-12.0); Monocytes % 4.1 % (1.7-12.7); NRBC # 0.02 10*3/uL; Neutrophils % 88.6 % (38.7-73.9); Platelet Count 358 T/CUMM (130-400); Red Blood Count 2.37 MC/CUMM (3.8-5.5); Red Cell Distribution Width 17.6 % (9.3-17.3); White Blood Count 13.9 T/CUMM (4-12)
[2020-12-23 05:15] LABS: Calcium 6.5 MG/DL (8.5-10.1); Potassium 3.4 MMOL/L (3.5-5.1)
[2020-12-23 05:28] LABS: Hypochromasia 1+; Lymphocytes 3 % (20-55); Microcytosis 1+; Platelet Estimate Adequate; Segmented Neutrophils 94 % (50-85); Total Cells Counted 100
[2020-12-23] MEDS: PANTOPRAZOLE 40 MG TABLET PO SCH (06:19)
[2020-12-23] MEDS: COLESTIPOL 1 GM TABLET PO SCH ×2 (09:29→20:51)
[2020-12-23] MEDS: HYDROCORTISONE 100 MG VIAL IV SCH ×2 (09:29→20:46)
[2020-12-23] MEDS: GABAPENTIN 100 MG CAPSULE PO SCH ×3 (09:30→20:50)
[2020-12-23] MEDS: LEVOTHYROXINE 25 MCG TABLET PO SCH (09:30)
[2020-12-23] MEDS: METOPROLOL TARTRATE 50 MG TABLET PO SCH ×2 (09:30→21:28)
[2020-12-23] MEDS: amLODIPine 10 MG TABLET PO SCH (09:30)
[2020-12-23] MEDS: CIPROFLOXACIN INJ 200 MG/100 ML PREMIX IV SCH (10:34)
[2020-12-23] MEDS ORDERED: SODIUM CHLORIDE 0.9% 1,000 ML IV PRN (13:02)
[2020-12-23] MEDS: ONDANSETRON 4 MG/2 ML VIAL IV PRN (13:59)
[2020-12-23] MEDS: ENOXAPARIN 30 MG/0.3 ML SYRINGE SUBCUT SCH (20:45)
[2020-12-24] MEDS: HYDROmorphone 2 MG/1 ML VIAL IV PRN ×5 (00:05→23:39)
[2020-12-24] MEDS: INSULIN LISPRO 100 UNIT/ML SUBCUT SCH ×6 (00:09→20:16)
[2020-12-24] MEDS: metroNIDAZOLE INJ 500 MG/100 ML PREMIX IV SCH ×4 (02:50→20:18)
[2020-12-24] MEDS: CIPROFLOXACIN INJ 200 MG/100 ML PREMIX IV SCH ×2 (03:54→21:42)
[2020-12-24] MEDS: PANTOPRAZOLE 40 MG TABLET PO SCH (05:57)
[2020-12-24] MEDS: VANCOMYCIN 50 MG/ML 60 ML/BOTTLE PO SCH ×3 (05:57→18:56)
[2020-12-24] MEDS: amLODIPine 10 MG TABLET PO SCH (08:09)
[2020-12-24] MEDS: HYDROCORTISONE 100 MG VIAL IV SCH ×2 (08:10→20:17)
[2020-12-24] MEDS: LEVOTHYROXINE 25 MCG TABLET PO SCH (08:10)
[2020-12-24] MEDS: METOPROLOL TARTRATE 50 MG TABLET PO SCH ×2 (08:10→20:13)
[2020-12-24] MEDS: COLESTIPOL 1 GM TABLET PO SCH ×2 (08:10→20:17)
[2020-12-24] MEDS: GABAPENTIN 100 MG CAPSULE PO SCH ×3 (08:10→20:17)
[2020-12-24 15:01] LABS: Basophils % 0.2 % (0.0-0.8); Eosinophils % 0.1 % (0.00-10.9); Hematocrit 22.9 VOL% (35.7-47.0); Immature Granulocytes % 4.1 %; Immature Granulocytes Absolute 0.45 #; Lymphocytes # 0.4 10*3/uL (1.4-4.0); Lymphocytes % 3.4 % (21.3-54.2); Mean Corpuscular HGB Conc 30.6 GM/DL (32-36); Mean Corpuscular Volume 92.7 FL (87-102); Mean Platelet Volume 10.1 FL (9.6-12.0); Monocytes % 2.9 % (1.7-12.7); Neutrophils % 89.3 % (38.7-73.9); Platelet Count 426 T/CUMM (130-400); Red Blood Count 2.47 MC/CUMM (3.8-5.5); Red Cell Distribution Width 17.8 % (9.3-17.3)
[2020-12-24 15:26] LABS: Lymphocytes 5 % (20-55); Segmented Neutrophils 94 % (50-85); Total Cells Counted 100
[2020-12-24 15:27] LABS: Anisocytosis 1+
[2020-12-24 15:28] LABS: Hypochromasia 1+
[2020-12-24 15:30] LABS: Polychromasia Few
[2020-12-24 15:39] LABS: Platelet Estimate Adequate
[2020-12-25] MEDS: INSULIN LISPRO 100 UNIT/ML SUBCUT SCH ×6 (00:09→21:38)
[2020-12-25] MEDS: VANCOMYCIN 50 MG/ML 60 ML/BOTTLE PO SCH ×4 (00:09→17:22)
[2020-12-25] MEDS: metroNIDAZOLE INJ 500 MG/100 ML PREMIX IV SCH ×3 (03:11→15:47)
[2020-12-25] MEDS: HYDROmorphone 2 MG/1 ML VIAL IV PRN ×5 (03:50→21:38)
[2020-12-25] MEDS: PANTOPRAZOLE 40 MG TABLET PO SCH (05:57)
[2020-12-25 06:18] LABS: Basophils % 0.3 % (0.0-0.8); Eosinophils % 0.3 % (0.00-10.9); Hematocrit 29.3 VOL% (35.7-47.0); Immature Granulocytes % 2.5 %; Lymphocytes # 0.9 10*3/uL (1.4-4.0); Lymphocytes % 7.4 % (21.3-54.2); Mean Corpuscular HGB Conc 32.4 GM/DL (32-36); Mean Corpuscular Volume 88.3 FL (87-102); Mean Platelet Volume 9.6 FL (9.6-12.0); Monocytes % 7.3 % (1.7-12.7); Neutrophils % 82.2 % (38.7-73.9); Red Cell Distribution Width 16.9 % (9.3-17.3)
[2020-12-25 06:29] LABS: Red Blood Count 3.32 MC/CUMM (3.8-5.5)
[2020-12-25 06:30] LABS: Hemoglobin 9.5 GM/DL (12.0-16.0); Platelet Count 338 T/CUMM (130-400)
[2020-12-25 06:47] LABS: Bilirubin,Total 0.6 MG/DL (0.2-1.0); Calcium 6.5 MG/DL (8.5-10.1); Potassium 3.8 MMOL/L (3.5-5.1)
[2020-12-25] MEDS: GABAPENTIN 100 MG CAPSULE PO SCH ×3 (09:55→21:43)
[2020-12-25] MEDS: METOPROLOL TARTRATE 50 MG TABLET PO SCH ×2 (09:55→21:43)
[2020-12-25] MEDS: amLODIPine 10 MG TABLET PO SCH (09:55)
[2020-12-25] MEDS: LEVOTHYROXINE 25 MCG TABLET PO SCH (09:55)
[2020-12-25] MEDS: COLESTIPOL 1 GM TABLET PO SCH ×2 (09:55→21:43)
[2020-12-25] MEDS: HYDROCORTISONE 100 MG VIAL IV SCH ×2 (10:00→21:40)
[2020-12-25] MEDS: CIPROFLOXACIN INJ 200 MG/100 ML PREMIX IV SCH (17:22)
[2020-12-26] MEDS: VANCOMYCIN 50 MG/ML 60 ML/BOTTLE PO SCH ×3 (00:28→11:25)
[2020-12-26] MEDS: INSULIN LISPRO 100 UNIT/ML SUBCUT SCH ×4 (00:32→11:25)
[2020-12-26] MEDS: HYDROmorphone 2 MG/1 ML VIAL IV PRN ×2 (04:39→08:34)
[2020-12-26 05:40] LABS: Basophils % 0.1 % (0.0-0.8); Hematocrit 30.7 VOL% (35.7-47.0); Hemoglobin 9.3 GM/DL (12.0-16.0); Immature Granulocytes % 1.7 %; Immature Granulocytes Absolute 0.24 #; Lymphocytes # 0.5 10*3/uL (1.4-4.0); Lymphocytes % 3.7 % (21.3-54.2); Mean Corpuscular HGB Conc 30.3 GM/DL (32-36); Mean Corpuscular Volume 91.9 FL (87-102); Mean Platelet Volume 9.6 FL (9.6-12.0); Monocytes % 3.8 % (1.7-12.7); Neutrophils % 90.7 % (38.7-73.9); Platelet Count 362 T/CUMM (130-400); Red Blood Count 3.34 MC/CUMM (3.8-5.5); Red Cell Distribution Width 17.2 % (9.3-17.3); White Blood Count 14.5 T/CUMM (4-12)
[2020-12-26] MEDS: PANTOPRAZOLE 40 MG TABLET PO SCH (06:18)
[2020-12-26 06:25] LABS: Calcium 6.4 MG/DL (8.5-10.1); Osmolality,Calculated 287.5 MOS/KG (273-304); Potassium 3.9 MMOL/L (3.5-5.1)
[2020-12-26 06:31] LABS: Band Neutrophils 1 % (0-10); Hypochromasia 1+; Lymphocytes 7 % (20-55); Microcytosis 1+; Segmented Neutrophils 89 % (50-85); Total Cells Counted 100
[2020-12-26 06:32] LABS: Target Cells Slight
[2020-12-26 06:33] LABS: Platelet Estimate Normal
[2020-12-26] MEDS: LEVOTHYROXINE 25 MCG TABLET PO SCH (08:31)
[2020-12-26] MEDS: METOPROLOL TARTRATE 50 MG TABLET PO SCH (08:31)
[2020-12-26] MEDS: amLODIPine 10 MG TABLET PO SCH (08:32)
[2020-12-26] MEDS: HYDROCORTISONE 100 MG VIAL IV SCH (08:32)
[2020-12-26] MEDS: GABAPENTIN 100 MG CAPSULE PO SCH (08:32)
[2020-12-26] MEDS: CIPROFLOXACIN INJ 200 MG/100 ML PREMIX IV SCH ×2 (08:35→09:54)
[2020-12-26] MEDS: COLESTIPOL 1 GM TABLET PO SCH (08:45)
[2020-12-26 11:30] VITALS: BP 171/90
== END 2020-12-26 13:36 | disposition home or self-care (01) | DRG 239 ==
LOC: N.ICU 14:29 → SUATTDRO 14:29 → N.5E 12-19 17:52
PROVIDERS: ADMIT Internal Medicine; ATTEND Hospitalist